=== PATIENT | female | born 1985 | race Caucasian/White ===

== ENCOUNTER → 2018-05-16 10:44 | Outpatient (CLI) | payer MEDICARE, MEDICAID, SELFPAY ==
--- NOTE | 2018-05-16 11:40 | BRBX_PTH ---
PATIENT: MAGGIE POWERS LOC: [facility] U#:[id number] AGE/SX: 40/F ROOM: RE05/16/[address]: Dr. Gabby Potts MD : [id number] BED: DIS: SPEC #: [id number] RECD: 05/16/18 13:24 STATUS: MARC CAMILO #: [id number] FADUMO: 05/16/18 11:[address]: Gabby Potts DEPT: SURGICAL PATHOLOGY RECD BY: Al Shen ENTERED: 05/16/18 13:31 SP TYPE: BREAST BX OTHR DR: MD Bernardo Harris PA Tissues: Right breast, NOS Procedures: Surgery Specimen Level IV HEADER OPERATION: Right breast stereotactic biopsy PRE-OP DIAGNOSIS: Calcifications right breast TISSUE SUBMITTED: Right breast core tissue ISCHEMIC TIME: 1 minute FIXATION TIME: 8 hours MICROSCOPIC DIAGNOSIS Right breast, stereotactic core biopsy: Fibrocystic changes and intraductal hyperplasia without atypia. Negative for malignancy. SJ:jesus 05/17/18 COMMENT Multiple levels are examined and microcalcifications are not seen. Correlation with clinical, radiologic findings and appropriate follow up are necessary. MICROSCOPIC DESCRIPTION Slides are reviewed. GROSS DESCRIPTION Received is one container labeled with the patient's name and not further designated. The specimen consists of multiple elongated fragments of hernandez-yellow fibroadipose tissue that in aggregate measure 7.5 x 3 x 0.3 cm. The entire specimen is submitted in three cassettes. / SILVANO:jesus 05/16/18 TC:5 CPT: 85007
--- NOTE | 2018-05-16 14:30 | PCM.OPRPT ---
Report of Operation Date of Procedure: 05/16/18 Pre-Operative Diagnosis: abnormal calcifications on right breast mammograms Post-Operative Diagnosis: same Surgery/Procedure Performed:: right stereotactic breast biopsy Description of Surgical Findings:: area of abnormal calcifications in the right breast Type of Anesthesia:: Local Specimen's removed: right breast tissue Estimated Blood Loss (mL): < 5 Fluids Replaced: none Description of Procedure: After informed consent was given, the patient was brought into the breast biopsy suite. Appropriate time out protocol was followed. She was then placed in the prone position on the stereotactic biopsy table. The patients right breast was then placed in the opening at the head of the table. A equipment lead compression mammogram was then obtained in the CC view. The suspicious radiological lesion was then identified. Stereo pictures of the lesion were then taken for XYZ coordinates. The Mammotome biopsy stylus was then positioned where it would be entering into the patients breast. The skin at this site was then cleansed with a surgical skin preparation. The skin and subcutaneous tissues at this site were then infiltrated with 1% xylocaine. A small skin incision was made with an 11 blade scalpel. The biopsy stylus was then positioned into the patients breast at the proper coordinates of depth. Using the Mammotome vacuum-assist device, several core samples of breast tissue were obtained. A specimen mammogram was the obtained and revealed that the suspicious lesion was within the specimen. A hemostatic marker clip was then placed into the biopsy cavity and a equipment lead film revealed that it was properly deployed. The patient was then placed in the supine position and pressure was applied to the breast until no active bleeding was noted. Steristrips were applied to reapproximate the skin. A unilateral mammogram in the CC and MLO view were then taken which revealed that the marker clip was in the same area as the previous suspicious lesion. The patient tolerated the procedure well and was discharged from the breast biopsy suite in good condition. - Complications none noted
--- NOTE | 2018-05-16 14:33 | OP.PCM_ITS ---
Report of Operation Date of Procedure: 05/16/18 Pre-Operative Diagnosis: abnormal calcifications on right breast mammograms Post-Operative Diagnosis: same Surgery/Procedure Performed:: right stereotactic breast biopsy Description of Surgical Findings:: area of abnormal calcifications in the right breast Type of Anesthesia:: Local Specimen's removed: right breast tissue Estimated Blood Loss (mL): < 5 Fluids Replaced: none Description of Procedure: After informed consent was given, the patient was brought into the breast biopsy suite. Appropriate time out protocol was followed. She was then placed in the prone position on the stereotactic biopsy table. The patient?s right breast was then placed in the opening at the head of the table. A reefer engineer compression mammogram was then obtained in the CC view. The suspicious radiological lesion was then identified. Stereo pictures of the lesion were then taken for XYZ coordinates. The Mammotome biopsy stylus was then positioned where it would be entering into the patient?s breast. The skin at this site was then cleansed with a surgical skin preparation. The skin and subcutaneous tissues at this site were then infiltrated with 1% xylocaine. A small skin incision was made with an 11 blade scalpel. The biopsy stylus was then positioned into the patient?s breast at the proper coordinates of depth. Using the Mammotome vacuum-assist device, several core samples of breast tissue were obtained. A specimen mammogram was the obtained and revealed that the suspicious lesion was within the specimen. A hemostatic marker clip was then placed into the biopsy cavity and a reefer engineer film revealed that it was properly deployed. The patient was then placed in the supine position and pressure was applied to the breast until no active bleeding was noted. Steristrips were applied to reapproximate the skin. A unilateral mammogram in the CC and MLO view were then taken which revealed that the marker clip was in the same area as the previous suspicious lesion. The patient tolerated the procedure well and was discharged from the breast biopsy suite in good condition. - Complications none noted
== END ==
PROVIDERS: Family Provider Internal Medicine; PCP Physician Assistant; Visit Provider Surgery
DX: N60.11 Diffuse cystic mastopathy of right breast (principal)
CPT/HCPCS: 19081; 88305; J7050; A4648